=== PATIENT | male | born 1985 | race Caucasian/White ===

== ENCOUNTER 2022-10-22 04:50 | Emergency (ER) | payer SELFPAY ==
[~2022-10-22] VITALS: Ht 180.3 cm; Wt 75.0 kg
[2022-10-22 04:56] VITALS: BP 151/89
[2022-10-22] MEDS ORDERED: TOPUD PO (05:33)
[2022-10-22] MEDS ORDERED: CIPHCO LEFT EAR (05:33)
== END 2022-10-22 06:00 | disposition home or self-care (01) ==
LOC: ER 04:50
DX: H60.92 Unspecified otitis externa, left ear (principal)
CPT/HCPCS: 99283

== ENCOUNTER 2023-03-12 06:48 | Emergency (ER) | payer SELFPAY ==
[~2023-03-12] VITALS: Ht 180.3 cm; Wt 79.0 kg
[~2023-03-12 06:48] MED LIST: CIPHCO LEFT EAR; TOPUD PO
[2023-03-12 08:15] VITALS: BP 108/77
[2023-03-12] MEDS ORDERED: KETOROLAC 60MG/2ML VIAL IM ONE (08:15)
[2023-03-12] MEDS ORDERED: IBUP-2029 MT (10:11)
[2023-03-12] MEDS ORDERED: METH-773 MT (10:11)
== END 2023-03-12 10:54 | disposition home or self-care (01) ==
LOC: ER 06:48
DX: M54.12 Radiculopathy, cervical region (principal); M25.512 Pain in left shoulder; M54.2 Cervicalgia; Z98.890 Other specified postprocedural states
CPT/HCPCS: 29125; 73000; 73030; 99284

== ENCOUNTER 2024-07-08 08:04 | Emergency (ER) | payer MEDICAID, OTHER ==
[~2024-07-08] VITALS: Ht 170.2 cm; Wt 74.0 kg
[~2024-07-08 08:04] MED LIST changes: +IBUP-2029 MT; +METH-773 MT
[2024-07-08 08:09] VITALS: O2SAT 100
[2024-07-08] MEDS ORDERED: DEXAMETHASONE 1MG TABLET PO ONE (08:15)
[2024-07-08] MEDS: FAMOTIDINE 20MG TABLET PO ONE (08:39)
[2024-07-08] MEDS: DEXAMETHASONE 2MG TABLET PO NR (08:39)
[2024-07-08 12:15] VITALS: BP 121/86; PULSE 109; RESP 15; TEMP 35.72508; O2SAT 100
[2024-07-08] MEDS ORDERED: EPIN0.3P3 IM (12:24)
== END 2024-07-08 12:30 | disposition home or self-care (01) ==
LOC: ER 08:04
DX: T78.2XXA Anaphylactic shock, unspecified, initial encounter (principal); Z88.6 Allergy status to analgesic agent; Z91.010 Allergy to peanuts; X58.XXXA Exposure to other specified factors, initial encounter
CPT/HCPCS: 99283; J8540

== ENCOUNTER 2024-07-26 12:50 | Emergency (ER) | payer MEDICAID ==
[~2024-07-26] VITALS: Ht 180.3 cm; Wt 80.0 kg
[~2024-07-26 12:50] MED LIST changes: +EPIN0.3P3 IM
[2024-07-26 12:56] VITALS: BP 118/71; PULSE 100; RESP 18; TEMP 97.7; O2SAT 99
== END 2024-07-26 16:29 | disposition left against medical advice (07) ==
LOC: ER 14:42
DX: R51.9 Headache, unspecified (principal); Z53.21 Procedure and treatment not carried out due to patient leaving prior to being seen by health care provider